=== PATIENT | male | born 1960 | race Two or more races ===

== ENCOUNTER 2020-01-03 17:38 | Emergency (ER) | payer SELFPAY ==
[~2020-01-03] VITALS: Ht 162.6 cm; Wt 93.6 kg
[2020-01-03 17:47] VITALS: BP 129/83
--- NOTE | 2020-01-03 18:55 | NUR ---
REPORT FROM CAMMY ROBERTSON
[2020-01-03] MEDS ORDERED: KETOROLAC 30 MG/1 ML IM ONE (19:00)
[2020-01-03] MEDS ORDERED: KETOROLAC 60 MG/2 ML ONE (19:06)
--- NOTE | 2020-01-03 19:18 | NUR ---
Patient/Caregiver given discharge instructions and they have confirmed that they understand the instructions. Patient ambulatory with steady gait.
== END 2020-01-03 19:19 | disposition home or self-care (01) ==
LOC: ED 19:00
DX: S16.1XXA Strain of muscle, fascia and tendon at neck level, initial encounter (principal); X50.0XXA Overexertion from strenuous movement or load, initial encounter; Y93.89 Activity, other specified; Y92.69 Other specified industrial and construction area as the place of occurrence of the external cause; Y99.8 Other external cause status
CPT/HCPCS: 96372; 99283; J1885

== ENCOUNTER 2020-01-07 19:48 | Emergency (ER) | payer SELFPAY ==
--- NOTE | 2020-01-07 19:56 | NUR ---
Pt was registered in error.
== END 2020-01-07 19:58 ==
LOC: ED 19:52
DX: M54.2 Cervicalgia (principal); Z53.21 Procedure and treatment not carried out due to patient leaving prior to being seen by health care provider